=== PATIENT | female | born 1945 | race Caucasian/White ===

== ENCOUNTER 2017-06-21 09:33 | Inpatient (IN) | payer MEDICARE ==
[~2017-06-21] VITALS: Ht 152.4 cm; Wt 65.9 kg
[2017-06-21] VITALS (14 sets, daily range): BP systolic 109–173; BP diastolic 48–88
[~2017-06-21 09:33] MED LIST: ADULT LOW DOSE81 MG PO; ALDACTONE 25MG25 MG NG; AMLODIPINE BES10 MG PO; ATORVASTATIN CA80 MG PO; BENEPROTEIN PO; BUSPAR 10MG TAB10 MG PO; CALCIUM CARB500 MG PO; CARVEDILOL 25MG25 MG PO; CLOPIDOGREL75 M2 PO; FLUOXETINE HYDR20 MG PO; FSBS SC; GEMFIBROZIL600 M1 OR; GLIMEPIRIDE 2MG2 MG PO; HYDROCHLOROTHIA50 MG PO; LASIX 40MG. TAB40 MG PO; LISINOPRIL40 MG PO; MAG-OX 400MG T400 MG PO; METFORMIN HCL1000 MG PO; MULTI-VITAMINS1 TAB PO; NITROGLYCERIN0.4 MG SL; PLAVIX 75MG TAB75 MG PO; POTASSIUM CHLO20 ME2 PO; PROZAC 20MG CAP20 MG PO; RANITIDINE HCL300 M1 PO; TYLENOL ES500 MG PO; ZOFRAN4 MG PO
[2017-06-21 09:43] LABS: HEMOGLOBIN 11.2 g/dL (12.2-16.2); LYMPH # 1.3 K/mm3 (0.7-4.5); LYMPH % 10.2 % (10-50.0)
[2017-06-21 09:49] LABS: CORONAVIRUS 229E NOT DETECTED (NOT DETECTE); CORONAVIRUS HKU 1 NOT DETECTED (NOT DETECTE); CORONAVIRUS NL63 NOT DETECTED (NOT DETECTE); CORONAVIRUS OC43 NOT DETECTED (NOT DETECTE); RHINOVIRUS/ENTEROVIRUS NOT DETECTED (NOT DETECTE)
--- NOTE | 2017-06-21 09:49 | Emergency Room Report ---
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 N Clinical Suspician of Infection? N Mental Status: 1 - Regular (Normal Baseline) Sepsis Risk:Low Sepsis Risk Have you (or family members/close friends) recently traveled outside the [place]? N If Yes, where/when: Have you had exposure to infectious disease within the past month? TB? Other? Specify: Comment The patient arrives by ambulance complaining of chest pain. She says she has had a bad cold with congestion and then woke up this morning at 6 AM with precordial chest pain radiating to her LEFT jaw, associated with shortness of breath and diaphoresis, but no nausea. She says the pain went away but now has returned and is currently 6/10. She has a history of coronary artery disease with stent placement and bypass surgery. [employer] Supervisor is Dr. Solorzano. She was given aspirin in route to the hospital. Electrocardiogram performed in route was seen by me, shows some suspicious reciprocal changes in the lateral leads, but no STEMI. ALLERGIES Coded Allergies: No Known Allergies (06/21/17) Home Medications Active Scripts Buspirone Hcl (Buspar 10MG) 10 MG PO TID PRN ANXIETY #270 TAB Ref 1 Prov: 01/13/16 Reported Medications Fluoxetine Hcl (Prozac 20MG Capsule(Generic)) 10 MG PO DAILY Ranitidine Hcl (Ranitidine 300MG) 300 MG PO QHS #90 TAB CLOPIDOGREL BISULFATE (PLAVIX) 75 MG PO DAILY Furosemide (Lasix 40MG) 40 MG PO BID MAGNESIUM OXIDE (Magnesium Oxide) 400 MG PO BID Acetaminophen (Tylenol XS 500MG) 500 MG PO Q8HP PRN PAIN MULTIVITAMIN (Multi-Vitamins) 1 TAB PO DAILY ONDANSETRON HCL (Zofran 4MG Tab) 4 MG PO Q8HP PRN NAUSEA/VOMITING Calcium Carbonate ([id number]) 500 MG PO BID WHEY PROTEIN ISOLATE (Beneprotein) 1 Scoopful PO BID MISCELLANEOUS (Fingerstick Blood Sugar) 1 STI SC AC NITROGLYCERIN (Nitrostat) 0.4 MG SL [id number] PRN CHEST PAIN #25 Aspirin (Adult Low Dose Aspirin EC) 81 MG PO DAILY #1 METFORMIN HCL (Metformin 1000MG) 1,000 MG PO BID #180 Carvedilol (Carvedilol 25MG) 25 MG PO BID #180 History Medical History General CAD? Yes Angina: Yes AL: Yes Hypertension? Yes Hyperlipidemia? Yes CHF? Yes DVT? No PE? No COPD? No Asthma? No Anemia? Yes GERD? No Gastric ulcers? No GI Bleed? No Hernia? No Thyroid Problems? No Hypothyroidism? No CVA? Yes Seizures? No Diabetes? Yes Insulin Dependent: No Insulin Pump: No Home FSBS? Yes Renal Insuffiency? No End Stage Renal Disease? No UTI? Yes Stones? No BPH? No GB Disease: No Nephritic Syndrome? No Asplenia? No Hepatitis? No Sickle Cell Disease? No Arthritis? No Migraines? No Cataracts? Yes Glaucoma? No MRSA? No HIV? No TB? No Anxiety? Yes Depression? Yes Cancer? Yes Site: CERVICAL More? Yes Additional hx: STENTS, BYPASS Immunization Hx Ped.Immunizations UTD Yes DT/Tetanus 5-10 Years Ago Pneumonia Received In Past Surgical Hx Previous Surgery?Y KIDNEY STENTS HEART STENTS TRIPLE BI PASS RIGHT ANKLE FX & SX CERVICAL CA SX Family History Family Hx Diabetes No CAD Yes Hypertension Yes Hyperlipidemia Yes Cancer No TB No Social History Smoking Hx Smoker: Former Smoker Tobacco: No Type Cigarettes Packs/day N/A Alcohol Alcohol: No Review of Systems All Other Systems Reviewed and Negative Constitutional diaphoresis ENT nose discharge. Respiratory shortness of breath Cardiovascular chest pain Gastrointestinal denies nausea, denies vomiting Physical Exam Vital Signs Vital Signs Date Time Temp Pulse Resp B/P Pulse O2 O2 Flow FiO2 Ox Delivery Rate 06/21 1126 97.8 74 18 96/45 97 06/21 1045 20 06/21 1028 20 06/21 1005 95 06/21 0950 97.8 85 18 138/87 95 06/21 0936 97.8 73 18 138/87 98 General Appearance mild distress Eye Exam - bilateral eye normal exam, bilateral eye PERRL, bilateral eye EOMI Ear, Nose, Throat hearing grossly normal, normal ENT inspection Neck normal inspection, non-tender, supple, full range of motion Respiratory Status Yes: trachea midline, chest symmetrical, non tender chest. No: respiratory distress. Lung Sounds bilateral: normal breath sounds, lungs clear. Cardiovascular normal exam, regular rate/rhythm, no peripheral edema, no gallop, no JVD, no murmur, no rub, normal peripheral pulses Peripheral Pulses Pulses normal Yes Gastrointestinal normal bowel sounds, normal exam, non tender, soft, no organomegaly Extremities normal inspection Neurologic alert, oriented x 3 Mental status normal mood/affect Skin intact, warm/dry, pallor Medical Decision Making LABS/Meds/Orders Pt receiving controlled substance in ED? No Results/Orders Laboratory Tests 06/21/17 0940: Lactic Acid 1.5, Chlamy pneum (TEM-PCR) NOT DETECTED, Adenovirus (PCR) NOT DETECTED, B. pertussis DNA (PCR) NOT DETECTED, Coronavirus OC43 (PCR) NOT DETECTED, Coronavirus HKU1 (PCR) NOT DETECTED, Coronavirus 229E (PCR) NOT DETECTED, Coronavirus NL63 (PCR) NOT DETECTED, Human Metapneumovir PCR NOT DETECTED, Influenza A (H1) PCR NOT DETECTED, Influ A (H1N1/09) PCR NOT DETECTED, Influenza A (H3) PCR NOT DETECTED, Influenza Type A (PCR) NOT DETECTED, Influenza Type B (PCR) NOT DETECTED, M. pneumoniae (PCR) NOT DETECTED, Parainfluenza 1 (PCR) NOT DETECTED, Parainfluenza 2 (PCR) NOT DETECTED, Parainfluenza 3 (PCR) NOT DETECTED, Parainfluenza 4 (PCR) NOT DETECTED, RSV (PCR ) NOT DETECTED, Entero/Rhino (PCR) NOT DETECTED 06/21/17 0930: Sodium 139, Potassium 4.0, Chloride 104, Carbon Dioxide 23, BUN 15, Creatinine 1.4 H, Estimated Creat Clear 38 L, Estimated GFR (MDRD) 37 L, Glucose 189 H, Calcium 8.4 L, Total Bilirubin 0.4, AST 20, ALT 14, Alkaline Phosphatase 93, Creatine Kinase 99, CK-MB (CK-2) Rel Index 2.1, CK and CKMB Interp 2.1, Troponin I 0.26 H, Total Protein 7.5, Albumin 2.6 L, Globulin 4.9 H, Albumin/Globulin Ratio 0.5 L, WBC 13.2 H, RBC 3.83 L, Hgb 11.2 L, Hct 33.2 L, MCV 86.7, RDW 12.0, Plt Count 429 H, MPV 8.3, Gran % 80.3 H, Gran # 10.6 H, Lymphocytes % 10.2, Monocytes % 4.7, Eosinophils % 4.5, Basophils % 0.3, Lymphocytes # 1.3, Monocytes # 0.6, Eosinophils # 0.6 H, Basophils # 0.0, PUBS MCHC 33.7, MCH 29.2 Current Medication Orders Sig/Penelope Start time Last Medication Dose Route Stop Time Status Admin Morphine Sulfate 0 .STK-MED ONE 06/21 1141 DC .ROUTE Protamine Sulfate 0 .STK-MED ONE 06/21 1131 DC IV Iopamidol 200 ML ONCE ONE 06/21 1130 UNV 06/21 IV 06/21 1131 1119 Diphenhydramine HCl 50 MG ONCE ONE 06/21 1015 DC IV 06/21 1016 Fentanyl Citrate 25 MCG Q3MINP PRN 06/21 1015 DCD 06/21 IV 06/21 2300 1046 Fentanyl Citrate 50 MCG Q3MINP PRN 06/21 1015 DCD IV 06/21 2300 Flumazenil 0.2 MG PRN PRN 06/21 1015 DCD IV 06/21 2300 Heparin Sodium (Beef 5,000 UNITS PRN PRN 06/21 1015 DCD 06/21 Lung) IV 06/22 1011 1052 Heparin Sodium/ 3,000 UNITS PRN PRN 06/21 1015 DCD 06/21 Sodium Chloride IV 06/22 1011 1016 Lidocaine HCl 20 ML ONCE ONE 06/21 1015 DCD 06/21 IJ 06/21 1016 1020 Midazolam HCl 1 MG Q3MINP PRN 06/21 1015 DCD IV 06/21 2300 Midazolam HCl 1 MG Q3MINP PRN 06/21 1015 DCD 06/21 IV 06/21 2300 1045 Naloxone HCl 0.4 MG [id number] PRN 06/21 1015 DCD IV 06/21 2300 Nitroglycerin 800 MCG PRN PRN 06/21 1015 DCD 06/21 IV 06/22 1011 1043 Sodium Chloride 10 ML PRN PRN 06/21 1015 DCD IV Sodium Chloride 1,000 ML .Q25H 06/21 1015 DCD 06/21 IV 1021 Ticagrelor 180 MG ONCE ONE 06/21 1015 DCD 06/21 PO 06/21 1016 1018 Verapamil HCl 5 MG PRN PRN 06/21 1015 DCD IV 06/22 1011 Heparin Sodium/ 1,500 ML .STK-MED ONE 06/21 1008 DC Sodium Chloride IV Nitroglycerin 0 .STK-MED ONE 06/21 1008 DC IV Diphenhydramine HCl 0 .STK-MED ONE 06/21 1007 DC .ROUTE Heparin Sodium (Beef 0 .STK-MED ONE 06/21 1007 DC Lung) .ROUTE Lidocaine HCl 0 .STK-MED ONE 06/21 1007 DC .ROUTE Verapamil HCl 0 .STK-MED ONE 06/21 1007 DC .ROUTE Ticagrelor 0 .STK-MED ONE 06/21 1003 DC PO Sodium Chloride 1,000 ML .STK-MED ONE 06/21 0958 DC IV Sodium Chloride 10 ML PRN PRN 06/21 0945 DCD IV 06/22 0934 Orders Procedure Date/time Status ANGIOPLASTY W/STENT PLCMNT 06/21 1116 Active ANGIOPLASTY W/STENT PLCMNT 06/21 1037 Active CARDIAC REHAB EVALUATION 06/21 1033 Active CULTURE, BLOOD 06/21 0946 Active UPPER RESPIRATORY PANEL, PCR 06/21 0946 Complete LACTIC ACID 06/21 0946 Complete ELECTROCARDIOGRAM REQUEST 06/21 0935 Active IV SALINE LOCK 06/21 0935 Active OXYGEN PER NURSE 06/21 0935 Active CBC WITH AUTO DIFF 06/21 0935 Complete CARDIAC ENZYMES 06/21 0935 Complete CHEM 12 PROFILE 06/21 0935 Complete 12 LEAD EKG-[facility] (INITIAL) 06/21 UNK Active MOD IV SED.-1ST 15M- >=5YR OLD 06/21 UNK Active VITAL SIGNS 06/21 UNK Active PREPARE CONSENT 06/21 UNK Active OXYGEN PER NURSE 06/21 UNK Active GEN NSG/PT REQ (NOT FOR MEDS!) 06/21 UNK Active IV, Insertion/Discontinue 06/21 UNK Active CM/EKG CM/EKG Comments EKG interpreted by Daniel Brooke MD: Rhythm: sinus Rate: 73 [place]: normal Ectopy: none Conduction: normal ST Segment Changes: ST elevation consistent with acute myocardial infarction in the inferior leads, depression consistent with reciprocal changes in the lateral leads. T Wave Changes: none Q Waves: none No evidence of acute ischemia or injury Progress - Electrocardiogram performed in the ED shows STEMI, inferior, with reciprocal changes. Code STEMI called. Cardiology service responded immediately to the emergency room and she was taken to the laboratory sample carrier emergently. Departure Departure Disposition Still a Patient Clinical Impression Primary Impression: Acute ST elevation myocardial infarction (STEMI) Qualifiers: Involved coronary artery: unspecified coronary artery Qualified Code: I21.3 - ST elevation (STEMI) myocardial infarction of unspecified site Condition STABLE Referrals Vishnu Zambrano MD (Family) ED Critical Care Critical Care Yes Time spent < 30 min Vital system(s) involved: Circulatory Failure I was present at bedside for Coordinating pt's care, Interpreting EKGs/Strips , During my initial exam, Reviewing old records, Discussing pt condition at 1147
--- OUTSIDE RECORDS SUMMARY | 2017-06-21 09:52 | External Medical Summary Rpt | CCD ---
Author Author , JULES VICENTE Address Unknown Phone [email or web address] Purpose Continuity of Care Document - 10-24-2016 through 2016 Problems Code Diagnosis DOS Provider Status E11.9 TYPE 2 10-24-2016 DIABETES MELLITUS WITHOUT COMPLICATIO NS F41.9 ANXIETY 10-24-2016 DISORDER, UNSPECIFIED I10 ESSENTIAL 10-24-2016 (PRIMARY) HYPERTENSIO N I25.2 OLD 10-24-2016 MYOCARDIAL INFARCTION K80.50 CALCULUS OF 10-24-2016 BILE DUCT WITHOUT CHOLANGITIS OR CHOLECYSTIT IS WITHOUT OBSTRUCTION N39.0 URINARY 10-24-2016 TRACT INFECTION, SITE NOT SPECIFIED R10.30 LOWER 10-24-2016 ABDOMINAL PAIN, UNSPECIFIED 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 complet ed 017 fl 4 ed blood 09:30 platele t mean volume sonny Blood = 429 142-424 complet platele 017 K/mm3 ed t count 09:30 Red = 3.83 4.2-5.4 complet blood 017 M/mm3 ed cell 09:30 count Automat = 12.0 11.5-17 complet ed 017 % .5 ed erythro 09:30 cyte distrib ution width Blood = 13.2 4.8-10. complet leukocy 017 K/MM3 8 ed karla 09:30 count (number /volume ) Automat = 0.0 0-0.2 complet ed 017 K/MM3 ed blood 09:30 basophi l count (count/ vo Baso % = 0.3 % 0.1-2.0 complet 017 ed 09:30 Automat = 0.6 0.0-0.4 complet ed 017 K/mm3 ed blood 09:30 eosinop hil count Automat = 4.5 % 0.1-12. complet ed 017 0 ed blood 09:30 eosinop hils/10 0 leukocy t Blood = 10.6 1.8-7.8 complet granulo 017 K/mm3 ed cytes 09:30 automat ed count (numb Granulo = 80.3 37.0-80 complet cyte 017 % .0 ed percent 09:30 age Blood = 33.2 37.0-47 complet hematoc 017 % .0 ed rit 09:30 (volume fractio n) Blood = 11.2 12.2-16 complet hemoglo 017 g/dL .2 ed bin 09:30 measure ment (mass/v olum Absolut = 1.3 0.7-4.5 complet e 017 K/mm3 ed lymphoc 09:30 yte count Lymphoc = 10.2 10-50.0 complet yte 017 % ed count, 09:30 blood, automat ed Mean = 29.2 27-31.2 complet corpusc 017 pg ed ular 09:30 hemoglo bin (MCH) determ Automat = 33.7 31.8-35 complet ed 017 g/dl .4 ed erythro 09:30 cyte mean corpusc ular h Automat = 86.7 82.2-97 complet ed 017 fl .8 ed erythro 09:30 cyte mean corpusc ular v Absolut = 0.6 0.1-1.0 complet e 017 K/mm3 ed monocyt 09:30 e count [place] % = 4.7 % 1.7-9.3 complet 017 ed 09:30
--- OUTSIDE RECORDS SUMMARY | 2017-06-21 09:52 | External Medical Summary Rpt ---
Author Author JULES Park, JULES Park Organization [employer] Address Unknown Phone Unavailable
--- OUTSIDE RECORDS SUMMARY | 2017-06-21 09:52 | External Medical Summary Rpt | CCD ---
Demographics Preferred Language Irish Marital Status Unknown Yazidi Affiliation Unknown Race Unknown Ethnic Group Unknown Author Author , JULES VICENTE Address Unknown Phone Immunization No patient found.
--- OUTSIDE RECORDS SUMMARY | 2017-06-21 09:52 | External Medical Summary Rpt | CCD ---
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
--- OUTSIDE RECORDS SUMMARY | 2017-06-21 09:52 | External Medical Summary Rpt | CCD ---
Author Author [employer] Organization [employer] Address Unknown Phone Unavailable Purpose Continuity of Care Document - through 2016
--- OUTSIDE RECORDS SUMMARY | 2017-06-21 09:52 | External Medical Summary Rpt | CCD ---
Demographics Preferred Language Romansh Marital Status Unknown Pentecostalism Affiliation Unknown Race Unknown Ethnic Group Unknown Author Author , JULES VICENTE Address Unknown Phone Immunization No patient found.
--- NOTE | 2017-06-21 10:11 | CONSULT NOTE ---
Standard Demographics Patient Demo Date of Consultation: 06/21/17 Referring Provider: Vishnu Zambrano MD Reason for Consultation: STEMI PRIMARY DIAGNOSIS: chest pain Problem list Problem list: 1. CAD A. UT/CABG, 2006, [facility], Dr. Chon Landin NSTEMI, 09/2015, SONNY to SVG to Cx, SONNY to LAD via WRIGHT. 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 ASA and Brilinta started. BMS to right renal artery. Chronically occluded left renal artery. C. CM with EF about 30% by echo, 01/2016. D. LHC, 01/19/2016, revealing multivessel disease with severe CM with EF 15-20%. E. Multivessel stenting, 01/2016, with placement of LifeVest. F. STEMI, 06/21/2017, inferiorly 2. Diabetes mellitus 3. Tobacco use discontinued 2005 one pack per day since age 17 4. Hyperlipidemia, intolerant of statins due to myalgias and muscular disorder 5. Muscular disorder felt related to use of statin 6. 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 Hypertension 9. Recurrent anemia with recent blood transfusion, 2015, per patient History of present illness: History of present illness: 71 yo WF with known ischemic CM, previous CABG and diabetes was seen in ER for recurrent CP for several days. Symptoms transiently improved with NTG SL but recurred with EKG changes consistent with inferior STEMI with lateral reciprocal changes. Pt seen urgently in ER and taken to labor delivery specialist for cardiac cath. Initial troponin 0.26. Past Medical History: General: Hypertension Yes CVA Yes Seizures No TB No COPD No Asthma No Diabetes Yes Insulin Dependent No Insulin Pump No Angina Yes [place] Yes Hyperlipidemia Yes Cancer Yes Ulcers No MRSA No GB Disease No Additional hx STENTS, BYPASS Past Surgical HX: Previous Surgery?Y KIDNEY STENTS HEART STENTS TRIPLE BI PASS RIGHT ANKLE FX & SX CERVICAL CA SX Allergies Coded Allergies: No Known Allergies (06/21/17) Home medications: Active Scripts Buspirone Hcl (Buspar 10MG) 10 MG PO TID PRN ANXIETY #270 TAB Ref 1 Prov: 01/13/16 Reported Medications Fluoxetine Hcl (Prozac 20MG Capsule(Generic)) 10 MG PO DAILY Ranitidine Hcl (Ranitidine 300MG) 300 MG PO QHS #90 TAB CLOPIDOGREL BISULFATE (PLAVIX) 75 MG PO DAILY Furosemide (Lasix 40MG) 40 MG PO BID MAGNESIUM OXIDE (Magnesium Oxide) 400 MG PO BID Acetaminophen (Tylenol XS 500MG) 500 MG PO Q8HP PRN PAIN MULTIVITAMIN (Multi-Vitamins) 1 TAB PO DAILY ONDANSETRON HCL (Zofran 4MG Tab) 4 MG PO Q8HP PRN NAUSEA/VOMITING Calcium Carbonate (Bquk-[id number]) 500 MG PO BID WHEY PROTEIN ISOLATE (Beneprotein) 1 Scoopful PO BID MISCELLANEOUS (Fingerstick Blood Sugar) 1 STI SC AC NITROGLYCERIN (Nitrostat) 0.4 MG SL [id number] PRN CHEST PAIN #25 Aspirin (Adult Low Dose Aspirin EC) 81 MG PO DAILY #1 METFORMIN HCL (Metformin 1000MG) 1,000 MG PO BID #180 Carvedilol (Carvedilol 25MG) 25 MG PO BID #180 Current Medications: Current Medications Ticagrelor 0 .STK-MED ONE PO (DC) Sodium Chloride 1,000 ML .STK-MED ONE IV (DC) Sodium Chloride 10 ML PRN PRN IV Immunization HX Ped.Immunizations UTD Yes DT/Tetanus 5-10 Years Pneumonia RECEIVED IN PAST Family history Family HX Family Hx Insignificant No Diabetes No CAD Yes Hypertension Yes Hyperlipidemia Yes Cancer No TB No Social Hx: Smoking HX Tobacco No Type Cigarettes Packs/day N/A Alcohol Alcohol: No Hx of Drug Use Drug Use? No Review of systems: Constitutional malaise. Respiratory shortness of breath. Cardiovascular chest pain Gastrointestinal/Abdominal No no symptoms reported Genitourinary No: no symptoms reported. Musculoskeletal back pain. Neurological No: no symptoms reported. Exam: Admission Vital Signs: 1ST Vital Signs Result Date Time Pulse Ox 98 06/21 936 B/P 138/87 06/21 936 Temp 97.8 06/21 936 Pulse 73 06/21 936 Resp 18 06/21 936 Last Vital Signs: Vital Signs Result Date Time Pulse Ox 95 06/21 1005 B/P 138/87 06/21 936 Temp 97.8 06/21 936 Pulse 73 06/21 936 Resp 18 06/21 936 Exam General appearance: alert, awake Neck: no carotid bruit, no JVD Cardiovascular: regular rate & rhythm Respiratory: clear to auscultation ABD: soft, no tenderness Extremities: moves all, no peripheral edema Neuro: alert, intact, oriented Laboratory data: Laboratory Tests 06/21/17 0930: Sodium 139, Potassium 4.0, Chloride 104, Carbon Dioxide 23, BUN 15, Creatinine 1.4 H, Estimated Creat Clear 38 L, Estimated GFR (MDRD) 37 L, Glucose 189 H, Calcium 8.4 L, Total Bilirubin 0.4, AST 20, ALT 14, Alkaline Phosphatase 93, Creatine Kinase 99, CK-MB (CK-2) Rel Index 2.1, CK and CKMB Interp 2.1, Troponin I 0.26 H, Total Protein 7.5, Albumin 2.6 L, Globulin 4.9 H, Albumin/Globulin Ratio 0.5 L, WBC 13.2 H, RBC 3.83 L, Hgb 11.2 L, Hct 33.2 L, MCV 86.7, RDW 12.0, Plt Count 429 H, MPV 8.3, Gran % 80.3 H, Gran # 10.6 H, Lymphocytes % 10.2, Monocytes % 4.7, Eosinophils % 4.5, Basophils % 0.3, Lymphocytes # 1.3, Monocytes # 0.6, Eosinophils # 0.6 H, Basophils # 0.0, PUBS MCHC 33.7, MCH 29.2 Microbiology Date/Time Procedure - Status Source Growth 06/21 940 Anaerobic Blood Culture - RECD BLOOD 06/21 940 Aerobic Blood Culture - RECD BLOOD 06/21 940 Anaerobic Blood Culture - RECD BLOOD 06/21 940 Aerobic Blood Culture - RECD BLOOD Plan Assessment: 1. STEMI 2. CAD with previous CABG 3. CKD stage 3 with Cr 1.7 and GFR 37 4. HTN 5. Hyperlipidemia 6. DM with cataract right eye/blind 7. Previous CVA CT STEMI SCORE CT STEMI SCORE Response Value Age of patient 65-74 years 2 Hx of anginal chest pain Present 1 Hx of hypertension Present 1 Hx of diabetes Present 1 Systolic Blood Pressure 100 mg Hg or more 0 Heart Rate Less than 100 beats/min 0 [place] Class I-No heart failure 0 Patient weight Less than 67 kg 0 Anterior [place] No 0 Left Bundle Branch Block Absent 0 Treatment delay after attack Less than 4 hrs 0 Total 5 Plan: 1. Taken urgently to cardiac labor delivery specialist at 1011
--- NOTE | 2017-06-21 10:11 | CONSULT NOTE ---
Standard Demographics Patient Demo Date of Consultation: 06/21/17 Referring Provider: Vishnu Zambrano MD Reason for Consultation: STEMI PRIMARY DIAGNOSIS: chest pain Problem list Problem list: 1. CAD A. WI/CABG, 2006, [facility], Dr. Chon Landin NSTEMI, 09/2015, SONNY to SVG to Cx, SONNY to LAD via WRIGHT. 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 ASA and Brilinta started. BMS to right renal artery. Chronically occluded left renal artery. C. CM with EF about 30% by echo, 01/2016. D. LHC, 01/19/2016, revealing multivessel disease with severe CM with EF 15-20%. E. Multivessel stenting, 01/2016, with placement of LifeVest. F. STEMI, 06/21/2017, inferiorly 2. Diabetes mellitus 3. Tobacco use discontinued 2005 one pack per day since age 17 4. Hyperlipidemia, intolerant of statins due to myalgias and muscular disorder 5. Muscular disorder felt related to use of statin 6. 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 Hypertension 9. Recurrent anemia with recent blood transfusion, 2015, per patient History of present illness: History of present illness: 71 yo WF with known ischemic CM, previous CABG and diabetes was seen in ER for recurrent CP for several days. Symptoms transiently improved with NTG SL but recurred with EKG changes consistent with inferior STEMI with lateral reciprocal changes. Pt seen urgently in ER and taken to medical laboratory assistant for cardiac cath. Initial troponin 0.26. Past Medical History: General: Hypertension Yes CVA Yes Seizures No TB No COPD No Asthma No Diabetes Yes Insulin Dependent No Insulin Pump No Angina Yes WI Yes Hyperlipidemia Yes Cancer Yes Ulcers No MRSA No GB Disease No Additional hx STENTS, BYPASS Past Surgical HX: Previous Surgery?Y KIDNEY STENTS HEART STENTS TRIPLE BI PASS RIGHT ANKLE FX & SX CERVICAL CA SX Allergies Coded Allergies: No Known Allergies (06/21/17) Home medications: Active Scripts Buspirone Hcl (Buspar 10MG) 10 MG PO TID PRN ANXIETY #270 TAB Ref 1 Prov: 01/13/16 Reported Medications Fluoxetine Hcl (Prozac 20MG Capsule(Generic)) 10 MG PO DAILY Ranitidine Hcl (Ranitidine 300MG) 300 MG PO QHS #90 TAB CLOPIDOGREL BISULFATE (PLAVIX) 75 MG PO DAILY Furosemide (Lasix 40MG) 40 MG PO BID MAGNESIUM OXIDE (Magnesium Oxide) 400 MG PO BID Acetaminophen (Tylenol XS 500MG) 500 MG PO Q8HP PRN PAIN MULTIVITAMIN (Multi-Vitamins) 1 TAB PO DAILY ONDANSETRON HCL (Zofran 4MG Tab) 4 MG PO Q8HP PRN NAUSEA/VOMITING Calcium Carbonate ([id number]) 500 MG PO BID WHEY PROTEIN ISOLATE (Beneprotein) 1 Scoopful PO BID MISCELLANEOUS (Fingerstick Blood Sugar) 1 STI SC AC NITROGLYCERIN (Nitrostat) 0.4 MG SL [id number] PRN CHEST PAIN #25 Aspirin (Adult Low Dose Aspirin EC) 81 MG PO DAILY #1 METFORMIN HCL (Metformin 1000MG) 1,000 MG PO BID #180 Carvedilol (Carvedilol 25MG) 25 MG PO BID #180 Current Medications: Current Medications Ticagrelor 0 .STK-MED ONE PO (DC) Sodium Chloride 1,000 ML .STK-MED ONE IV (DC) Sodium Chloride 10 ML PRN PRN IV Immunization HX Ped.Immunizations UTD Yes DT/Tetanus 5-10 Years Pneumonia RECEIVED IN PAST Family history Family HX Family Hx Insignificant No Diabetes No CAD Yes Hypertension Yes Hyperlipidemia Yes Cancer No TB No Social Hx: Smoking HX Tobacco No Type Cigarettes Packs/day N/A Alcohol Alcohol: No Hx of Drug Use Drug Use? No Review of systems: Constitutional malaise. Respiratory shortness of breath. Cardiovascular chest pain Gastrointestinal/Abdominal No no symptoms reported Genitourinary No: no symptoms reported. Musculoskeletal back pain. Neurological No: no symptoms reported. Exam: Admission Vital Signs: 1ST Vital Signs Result Date Time Pulse Ox 98 06/21 936 B/P 138/87 06/21 936 Temp 97.8 06/21 936 Pulse 73 06/21 936 Resp 18 06/21 936 Last Vital Signs: Vital Signs Result Date Time Pulse Ox 95 06/21 1005 B/P 138/87 06/21 936 Temp 97.8 06/21 936 Pulse 73 06/21 936 Resp 18 06/21 936 Exam General appearance: alert, awake Neck: no carotid bruit, no JVD Cardiovascular: regular rate & rhythm Respiratory: clear to auscultation ABD: soft, no tenderness Extremities: moves all, no peripheral edema Neuro: alert, intact, oriented Laboratory data: Laboratory Tests 06/21/17 0930: Sodium 139, Potassium 4.0, Chloride 104, Carbon Dioxide 23, BUN 15, Creatinine 1.4 H, Estimated Creat Clear 38 L, Estimated GFR (MDRD) 37 L, Glucose 189 H, Calcium 8.4 L, Total Bilirubin 0.4, AST 20, ALT 14, Alkaline Phosphatase 93, Creatine Kinase 99, CK-MB (CK-2) Rel Index 2.1, CK and CKMB Interp 2.1, Troponin I 0.26 H, Total Protein 7.5, Albumin 2.6 L, Globulin 4.9 H, Albumin/Globulin Ratio 0.5 L, WBC 13.2 H, RBC 3.83 L, Hgb 11.2 L, Hct 33.2 L, MCV 86.7, RDW 12.0, Plt Count 429 H, MPV 8.3, Gran % 80.3 H, Gran # 10.6 H, Lymphocytes % 10.2, Monocytes % 4.7, Eosinophils % 4.5, Basophils % 0.3, Lymphocytes # 1.3, Monocytes # 0.6, Eosinophils # 0.6 H, Basophils # 0.0, PUBS MCHC 33.7, MCH 29.2 Microbiology Date/Time Procedure - Status Source Growth 06/21 940 Anaerobic Blood Culture - RECD BLOOD 06/21 940 Aerobic Blood Culture - RECD BLOOD 06/21 940 Anaerobic Blood Culture - RECD BLOOD 06/21 940 Aerobic Blood Culture - RECD BLOOD Plan Assessment: 1. STEMI 2. CAD with previous CABG 3. CKD stage 3 with Cr 1.7 and GFR 37 4. HTN 5. Hyperlipidemia 6. DM with cataract right eye/blind 7. Previous CVA CT STEMI SCORE CT STEMI SCORE Response Value Age of patient 65-74 years 2 Hx of anginal chest pain Present 1 Hx of hypertension Present 1 Hx of diabetes Present 1 Systolic Blood Pressure 100 mg Hg or more 0 Heart Rate Less than 100 beats/min 0 Killip Class I-No heart failure 0 Patient weight Less than 67 kg 0 Anterior WI No 0 Left Bundle Branch Block Absent 0 Treatment delay after attack Less than 4 hrs 0 Total 5 Plan: 1. Taken urgently to cardiac medical laboratory assistant at 1011
--- NOTE | 2017-06-21 11:13 | RADIOLOGY REPORT PS360 ---
CARDIAC CATHETERIZATION DATE OF CATHETERIZATION:06/21/2017 10:16 AM PROCEDURES: 1. Left heart catheterization 2. Left ventriculogram 3. Selective coronary angiogram 4. Selective engagement left internal mammary artery 5. Selective engagement of the saphenous vein graft to the circumflex artery 6. Selective engagement of the saphenous vein graft to the right coronary artery 7. Drug-eluting stent deployment to the saphenous vein graft to the circumflex artery 8. Drug-eluting stent deployment to the left internal mammary artery 9. Angioplasty to the LAD via the left internal mammary artery INDICATION FOR TEST: 1. Acute inferior ST elevation myocardial infarct 2. Coronary artery disease 3. History of bypass surgery Informed consent was obtained prior to the procedure. COMPLICATIONS: None ESTIMATED BLOOD LOSS: Less than 10 ml. TECHNIQUE: One percent lidocaine was used to anesthetize the right groin. The right femoral artery was accessed via the Seldinger technique. A 6 [place] sheath was placed in the right femoral artery followed by 7000 units of intra-arterial heparin. The JR4 guide catheter was used to perform angiography of the 2 veins. An LCB guide catheter was used intubate the saphenous vein graft and a choice PT wire was placed distally into the obtuse marginal artery. An export catheter was used to try to aspirate clot from the entire vein graft. CT-3 flow was not restored with export usage. Four 3 mm x 38 mm resolute Heladio stents were placed proximally mid and distally followed by multiple aliquots of 800 mcg of intracoronary nitroglycerin. CT-3 flow was restored. Following this a JL 4 catheter was used to perform left sided selective coronary angiography. A WRIGHT guide catheter was used to perform left internal mammary artery. Following this a 6 [place] WRIGHT guide catheter was placed in the left internal mammary artery and a choice PT floppy wire was placed distally into the LAD. A 2.25 x 38 mm resolute Heladio stent was placed in the saphenous vein graft and 90% in-stent restenotic area and deployed at 20 wolfgang. The balloon was advanced into the LAD and a noncontiguous manner and the balloon was taken to 12 wolfgang for 1 minute. 1000 mcg of intracoronary nitroglycerin was administered into the WRIGHT. CT-3 flow was present with excellent interval improvement in angiographic results. At the end of the procedure is WRIGHT catheter was used to perform left heart catheterization left ventriculogram. The closing ACT was 257 therefore an additional 2000 units of heparin was administered intravenously. Patient was transferred to the postop holding area in stable condition. Brilinta 180 mg orally was administered in the emergency department prior to patient being transferred up to cardiac catheter lab ANGIOGRAPHIC RESULTS: 1. The left main artery normal 2. The left anterior descending artery has proximal 20% stenoses and gives rise to a diagonal artery and a septal correctional supervisor lieutenant. The LAD is then occluded. The diagonal artery has 90% stenosis at a 1.5 mm segment. The vessel has diffuse vasculopathy. The first septal correctional supervisor lieutenant has an ostial proximal 80% stenosis 3. The circumflex artery is rise to a ramus intermedius which has 50% mid vessel stenoses. The circumflex artery is a 99% stenosis and then gives off 3 small obtuse marginal arteries and is occluded 4. The right coronary artery is ostially occluded 5. The DURAND ventriculogram reveals left ventricular dilatation estimated ejection fraction 35-40% 6. The left ventricular end-diastolic pressure 30 mmHg 7. The saphenous vein graft to the circumflex artery is ostially occluded at the beginning of the case and widely patent from the ostium all the way to the anastomosis site following the placement of 4 drug-eluting stents. The obtuse marginal artery supplied by the saphenous vein graft is now widely patent and does backfill to small obtuse marginal arteries 8. The saphenous vein graft to the right coronary artery is widely patent in the proximal segment and has a distal 60-70% concentric stenosis and then supplies a large posterior descending artery. Posterior descending artery has a proximal 80% concentric stenosis and then backfills a small to medium posterior lateral ventricular branch 9. The left internal mammary artery is widely patent and has a 99% in-stent restenotic lesion which appears to be inside the stent. Distal to the stent the [place] LAD has a 99% stenosis after the revascularization the WRIGHT graft and the [place] LAD were widely patent IMPRESSION: 1. Acute ST elevation myocardial infarction involving the saphenous vein graft to the circumflex artery 2. Successful thrombectomy and reconstruction of the entire vein graft going to the circumflex artery 100% occlusion reduced to 0% with 4 drug-eluting stents in the vein graft 3. Critical disease in the left internal mammary artery and [place] LAD 4. Successful stenting of the left internal mammary artery critical disease reduced to 0% with 1 drug-eluting stent 5. Successful angioplasty of the [place] left internal mammary artery 99% stenosis reduced to 0% with plain old balloon angioplast(POBA) PLAN: 1. Brilinta and aspirin 2. LDL less than 55 3. Risk factor modification 4. Cardiac rehabilitation 5. Avoidance of tobacco products 6. An echocardiogram will be obtained to better evaluate patient's ejection fraction and if her ejection fraction is 35% or less I would recommend lifevest
--- NOTE | 2017-06-21 11:13 | RADIOLOGY REPORT PS360 ---
CARDIAC CATHETERIZATION DATE OF CATHETERIZATION:06/21/2017 10:16 AM PROCEDURES: 1. Left heart catheterization 2. Left ventriculogram 3. Selective coronary angiogram 4. Selective engagement left internal mammary artery 5. Selective engagement of the saphenous vein graft to the circumflex artery 6. Selective engagement of the saphenous vein graft to the right coronary artery 7. Drug-eluting stent deployment to the saphenous vein graft to the circumflex artery 8. Drug-eluting stent deployment to the left internal mammary artery 9. Angioplasty to the LAD via the left internal mammary artery INDICATION FOR TEST: 1. Acute inferior ST elevation myocardial infarct 2. Coronary artery disease 3. History of bypass surgery Informed consent was obtained prior to the procedure. COMPLICATIONS: None ESTIMATED BLOOD LOSS: Less than 10 ml. TECHNIQUE: One percent lidocaine was used to anesthetize the right groin. The right femoral artery was accessed via the Seldinger technique. A 6 Citizen [place] sheath was placed in the right femoral artery followed by 7000 units of intra-arterial heparin. The JR4 guide catheter was used to perform angiography of the 2 veins. An LCB guide catheter was used intubate the saphenous vein graft and a choice PT wire was placed distally into the obtuse marginal artery. An export catheter was used to try to aspirate clot from the entire vein graft. CT-3 flow was not restored with export usage. Four 3 mm x 38 mm resolute Heladio stents were placed proximally mid and distally followed by multiple aliquots of 800 mcg of intracoronary nitroglycerin. CT-3 flow was restored. Following this a JL 4 catheter was used to perform left sided selective coronary angiography. A WRIGHT guide catheter was used to perform left internal mammary artery. Following this a 6 Citizen [place] WRIGHT guide catheter was placed in the left internal mammary artery and a choice PT floppy wire was placed distally into the LAD. A 2.25 x 38 mm resolute Heladio stent was placed in the saphenous vein graft and 90% in-stent restenotic area and deployed at 20 wolfgang. The balloon was advanced into the LAD and a noncontiguous manner and the balloon was taken to 12 wolfgang for 1 minute. 1000 mcg of intracoronary nitroglycerin was administered into the WRIGHT. CT-3 flow was present with excellent interval improvement in angiographic results. At the end of the procedure is WRIGHT catheter was used to perform left heart catheterization left ventriculogram. The closing ACT was 257 therefore an additional 2000 units of heparin was administered intravenously. Patient was transferred to the postop holding area in stable condition. Brilinta 180 mg orally was administered in the emergency department prior to patient being transferred up to cardiac catheter lab ANGIOGRAPHIC RESULTS: 1. The left main artery normal 2. The left anterior descending artery has proximal 20% stenoses and gives rise to a diagonal artery and a septal hairmasters manager. The LAD is then occluded. The diagonal artery has 90% stenosis at a 1.5 mm segment. The vessel has diffuse vasculopathy. The first septal hairmasters manager has an ostial proximal 80% stenosis 3. The circumflex artery is rise to a ramus intermedius which has 50% mid vessel stenoses. The circumflex artery is a 99% stenosis and then gives off 3 small obtuse marginal arteries and is occluded 4. The right coronary artery is ostially occluded 5. The DURAND ventriculogram reveals left ventricular dilatation estimated ejection fraction 35-40% 6. The left ventricular end-diastolic pressure 30 mmHg 7. The saphenous vein graft to the circumflex artery is ostially occluded at the beginning of the case and widely patent from the ostium all the way to the anastomosis site following the placement of 4 drug-eluting stents. The obtuse marginal artery supplied by the saphenous vein graft is now widely patent and does backfill to small obtuse marginal arteries 8. The saphenous vein graft to the right coronary artery is widely patent in the proximal segment and has a distal 60-70% concentric stenosis and then supplies a large posterior descending artery. Posterior descending artery has a proximal 80% concentric stenosis and then backfills a small to medium posterior lateral ventricular branch 9. The left internal mammary artery is widely patent and has a 99% in-stent restenotic lesion which appears to be inside the stent. Distal to the stent the [place] LAD has a 99% stenosis after the revascularization the WRIGHT graft and the [place] LAD were widely patent IMPRESSION: 1. Acute ST elevation myocardial infarction involving the saphenous vein graft to the circumflex artery 2. Successful thrombectomy and reconstruction of the entire vein graft going to the circumflex artery 100% occlusion reduced to 0% with 4 drug-eluting stents in the vein graft 3. Critical disease in the left internal mammary artery and [place] LAD 4. Successful stenting of the left internal mammary artery critical disease reduced to 0% with 1 drug-eluting stent 5. Successful angioplasty of the [place] left internal mammary artery 99% stenosis reduced to 0% with plain old balloon angioplast(POBA) PLAN: 1. Brilinta and aspirin 2. LDL less than 55 3. Risk factor modification 4. Cardiac rehabilitation 5. Avoidance of tobacco products 6. An echocardiogram will be obtained to better evaluate patient's ejection fraction and if her ejection fraction is 35% or less I would recommend lifevest
--- OUTSIDE RECORDS SUMMARY | 2017-06-21 14:10 | External Medical Summary Rpt | CCD ---
Demographics Preferred Language Czech Marital Status Unknown Mosque Affiliation Unknown Race Unknown Ethnic Group Unknown Author Author , JULES VICENTE Address Unknown Phone Immunization No patient found.
--- OUTSIDE RECORDS SUMMARY | 2017-06-21 14:10 | External Medical Summary Rpt | CCD ---
Author Author , JULES VICENTE Address Unknown Phone [email or web address] Purpose Continuity of Care Document - 10-24-2016 [...] R10.30 LOWER 10-24-2016 ABDOMINAL PAIN, UNSPECIFIED Z79.84 SHELTER 10-24-2016 (CURRENT) USE OF ORAL HYPOGLYCEMI C DRUGS Z79.899 OTHER LONG 10-24-2016 TERM (CURRENT) DRUG THERAPY Z87.891 PERSONAL 10-24-2016 HISTORY OF NICOTINE DEPENDENCE I21.3 ST ELEVATION (STEMI) MYOCARDIAL INFARCTION OF [facility] SITE Results Labs Lab Lab Date Result Refere Interp Status Commen Order Detail nces retati t Range on Activated clotting time (06-21-2017 12:06) Activat = 151 74-125 complet ed 017 SEC ed clottin 12:06 g time Activated clotting time (06-21-2017 11:27) Activat = 305 74-125 complet ed 017 SEC ed clottin 11:27 g time Activated clotting time (06-21-2017 10:48) Activat = 257 74-125 complet ed 017 SEC ed clottin 10:48 g time Activated clotting time (06-21-2017 10:19) Activat > 400 74-125 complet ed 017 SEC ed clottin 10:19 g time Blood lactic acid measurement (moles/vol (06-21-2017 09:40) Blood = 1.5 0.4-2.0 complet lactic 017 mmol/L ed acid 09:40 measure ment (moles/ vol UPPER RESPIRATORY PANEL,PCR (06-21-2017 09:40) Parainf NOT NOT complet luenza 017 DETECTE DETECTE ed virus 3 09:40 D NOT RNA DETECTE detecti D L on by p Parainf NOT NOT complet luenza 017 DETECTE DETECTE ed virus 09:40 D NOT type 4 DETECTE RNA D L detecti on Rhinovi NOT NOT complet marylu and 017 DETECTE DETECTE ed 09:40 D NOT Enterov DETECTE irus D L RNA detecti on Respira NOT NOT complet tory 017 DETECTE DETECTE ed syncyti 09:40 D NOT al DETECTE virus D L (RSV) detect Stool NOT NOT complet adenovi 017 DETECTE DETECTE ed marylu DNA 09:40 D NOT DETECTE detecti D L on by PCR Bordete NOT NOT complet lla 017 DETECTE DETECTE ed pertuss 09:40 D NOT is DETECTE detecti D L on by PCR Chlamyd NOT NOT complet ophila 017 DETECTE DETECTE ed pneumon 09:40 D NOT iae DNA DETECTE D L detecti on b Human NOT NOT complet coronav 017 DETECTE DETECTE ed irus 09:40 D NOT HKU1 DETECTE RNA D L detecti on by SARS NOT NOT complet Coronav 017 DETECTE DETECTE ed irus 09:40 D NOT RNA DETECTE detecti D L on by probe Influen NOT NOT complet za A 017 DETECTE DETECTE ed virus 09:40 D NOT subtype DETECTE H3 D L detecti on b Influen NOT NOT complet za 017 DETECTE DETECTE ed virus A 09:40 D NOT H1 RNA DETECTE D L detecti on in is Influen NOT NOT complet za A 017 DETECTE DETECTE ed H1N1 09:40 D NOT 2009 DETECTE RT-PCR D L Influen NOT NOT complet za B 017 DETECTE DETECTE ed virus 09:40 D NOT RNA DETECTE detecti D L on by polym Influen NOT NOT complet za A 017 DETECTE DETECTE ed RNA PCR 09:40 D NOT DETECTE D L Human NOT NOT complet metapne 017 DETECTE DETECTE ed umoviru 09:40 D NOT s DETECTE (hMPV) D L antigen det Mycopla NOT NOT complet sma 017 DETECTE DETECTE ed pneumon 09:40 D NOT iae PCR DETECTE D L Parainf NOT NOT complet luenza 017 DETECTE DETECTE ed 1 virus 09:40 D NOT RNA DETECTE nucleic D L acid a Parainf NOT NOT complet luenza 017 DETECTE DETECTE ed virus 2 09:40 D NOT RNA DETECTE detecti D L on by p CBC w auto diff (06-21-2017 09:30) Automat [...] 017 K/mm3 ed monocyt 09:30 e count Desha % = 4.7 % 1.7-9.3 complet 017 ed 09:30 Cardiac enzymes (06-21-2017 09:30) Serum = 2.1 0.0-3.6 complet or 017 ng/mL ed plasma 09:30 creatin e kinase MB measu Serum = 2.1 0-4.0 complet or 017 U/L ed plasma 09:30 creatin e kinase MB (CK-M Serum = 99 26-192 complet or 017 U/L ed plasma 09:30 creatin e kinase measure m Serum = 0.26 0.00-0. complet or 017 ng/mL 06 ed plasma 09:30 troponi n i.cardi ac measu Comment: 0.04 - 0.49 IS AN INDETERMINANT ZONE Comment: And can be consistent with the following diseases: Comment: Comment: Trauma Critically ill patients Rao >30% TBSA Comment: CHF Hypothyroidism Amyloidosis Comment: Hypertension Myocarditis Sepsis Comment: Hypotension Rhabdomyolysis Vital exhaust. Comment: Postop surgery Pulmonary embolism CVA Comment: Renal failure Acute neurological disease Atrial fib. Comprehensive metabolic panel (06-21-2017 09:30) Serum --2 = 0.5 1.1-1.8 complet or 017 ed plasma 09:30 albumin /globul in mass ra Serum 2 = 2.6 3.4-5.0 complet or 017 gm/dL ed plasma 09:30 albumin measure ment (mas Serum = 93 46-116 complet or 017 U/L ed plasma 09:30 alkalin e phospha tase sonny Serum = 0.4 0.2-1.0 complet or 017 mg/dL ed plasma 09:30 total bilirub in measure m Serum = 15 7-18 complet or 017 mg/dL ed plasma 09:30 urea nitroge n measure men Serum = 8.4 8.5-10. complet or 017 mg/dL 1 ed plasma 09:30 calcium measure ment (mas Serum = 104 98-107 complet or 017 mmoL/L ed plasma 09:30 chlorid e measure ment (mo Carbon = 23 21.0-32 complet dioxide 017 mmoL/L .0 ed 09:30 measure ment Serum = 1.4 0.55-1. complet or 017 mg/dL 02 ed plasma 09:30 creatin ine measure ment ( Estimat = 38 50-200 complet ion of 017 ML/MIN ed creatin 09:30 ine renal clearan ce Estimat = 37 59- complet ed 017 ML/MIN ed glomeru 09:30 lar filtrat ion rate (GF Comment: REFERENCE RANGE: >60 ML/MIN/1.73 SQUARE METERS Comment: If this patient is -Rwandan, then multiply the Comment: result by 1.210. Serum = 4.9 1.3-3.2 complet globuli 017 gm/dL ed n 09:30 measure ment (mass/v olume) Serum = 189 74-106 complet or 017 mg/dL ed plasma 09:30 glucose measure ment (mas Serum = 4.0 3.5-5.1 complet potassi 017 mmoL/L ed um 09:30 measure ment Serum = 139 136-145 complet sodium 017 mmoL/L ed measure 09:30 ment Serum = 20 15-37 complet or 017 U/L ed plasma 09:30 asparta te aminotr ansfera ALT = 14 12-78 complet (SGPT) 017 U/L ed ser/mario 09:30 s Protein = 7.5 6.4-8.2 complet total 017 gm/dL ed ser/mario 09:30 s
--- OUTSIDE RECORDS SUMMARY | 2017-06-21 14:10 | External Medical Summary Rpt | CCD ---
Demographics Preferred Language Bulgarian Marital Status Unknown Quaker Affiliation Unknown Race Unknown Ethnic Group Unknown Author Author , JULES VICENTE Address Unknown Phone Immunization No patient found.
--- OUTSIDE RECORDS SUMMARY | 2017-06-21 14:10 | External Medical Summary Rpt | CCD ---
Author Author , JULES VICENTE Address Unknown Phone [email or web address] Purpose Continuity of Care Document - 10-24-2016 [...] R10.30 LOWER 10-24-2016 ABDOMINAL PAIN, UNSPECIFIED Z79.84 HALFWAY 10-24-2016 (CURRENT) USE OF ORAL HYPOGLYCEMI C DRUGS Z79.899 OTHER LONG 10-24-2016 TERM (CURRENT) DRUG THERAPY Z87.891 PERSONAL 10-24-2016 HISTORY OF NICOTINE DEPENDENCE I21.3 ST ELEVATION (STEMI) MYOCARDIAL INFARCTION OF [facility] SITE Results Labs Lab Lab Date Result [...] 017 K/mm3 ed monocyt 09:30 e count [place] % = 4.7 % 1.7-9.3 complet 017 [...] SQUARE METERS Comment: If this patient is -[place]ian, then multiply the Comment: result by 1.210. [...]
--- OUTSIDE RECORDS SUMMARY | 2017-06-21 14:11 | External Medical Summary Rpt ---
Author Author [employer], [employer] Organization [employer] Address Unknown Phone Unavailable Results Activated clotting time in Blood by Coagulation assay Observa Value Referen Units Interpr Notes Date tion ce etation Range Activated 74 - 125 SEC High No Jun 6 clotting alert informati 2017 time in on in 12:06 PM Blood by source Coagulati data on assay Activated clotting time in Blood by Coagulation assay Observa Value Referen Units Interpr Notes Date tion ce etation Range Activated 74 - 125 SEC High No Jun 21 clotting alert informati 2017 time in on in 11:27 AM Blood by source Coagulati data on assay Activated clotting time in Blood by Coagulation assay Observa Value Referen Units Interpr Notes Date tion ce etation Range Activated 74 - 125 SEC High No Jun 21 clotting alert informati 2017 time in on in 10:48 AM Blood by source Coagulati data on assay UPPER RESPIRATORY PANEL,PCR Observa Value Referen Units Interpr Notes Date tion ce etation Range Adenovi NOT NOT No No No Dec 6 marylu DNA DETECTE DETECTE informa informa informa 2017 D tion in tion in tion in 9:40 AM [Presen source source source ce] in data data data Unspeci fied specime n by Probe & target amplifi cation method Bordete NOT NOT No No No Dec 6 lla DETECTE DETECTE informa informa informa 2017 pertuss D tion in tion in tion in 9:40 AM is DNA source source source [Presen data data data ce] in Unspeci fied specime n by Probe & target amplifi cation method Chlamyd NOT NOT No No No Dec 6 ophila DETECTE DETECTE informa informa informa 2017 pneumon D tion in tion in tion in 9:40 AM iae DNA source source source data data data [Presen ce] in Unspeci fied specime n by Probe & target amplifi cation method SARS NOT NOT No No No Dec 6 coronav DETECTE DETECTE informa informa informa 2017 irus D tion in tion in tion in 9:40 AM RNA source source source [Presen data data data ce] in Unspeci fied specime n by Probe & target amplifi cation method Human NOT NOT No No No Dec 6 coronav DETECTE DETECTE informa informa informa 2016 irus D tion in tion in tion in 9:40 AM HKU1 source source source RNA data data data detecti on by SARS NOT NOT No No No Dec 6 coronav DETECTE DETECTE informa informa informa 2016 irus D tion in tion in tion in 9:40 AM RNA source source source [Presen data data data ce] in Unspeci fied specime n by Probe & target amplifi cation method SARS NOT NOT No No No Dec 6 coronav DETECTE DETECTE informa informa informa 2017 irus D tion in tion in tion in 9:40 AM RNA source source source [Presen data data data ce] in Unspeci fied specime n by Probe & target amplifi cation method Influen NOT NOT No No No Dec 6 za DETECTE DETECTE informa informa informa 2017 virus A D tion in tion in tion in 9:40 AM H3 RNA source source source data data data [Presen ce] in Unspeci fied specime n by Probe & target amplifi cation method Influen NOT NOT No No No Dec 6 za DETECTE DETECTE informa informa informa 2017 virus A D tion in tion in tion in 9:40 AM H1 RNA source source source data data data [Presen ce] in Isolate by Probe & target amplifi cation method Influen NOT NOT No No No Dec 6 za DETECTE DETECTE informa informa informa 2017 virus A D tion in tion in tion in 9:40 AM H1 RNA source source source data data data [Presen ce] in Unspeci fied specime n by Probe & target amplifi cation method Influen NOT NOT No No No Dec 6 za DETECTE DETECTE informa informa informa 2017 virus B D tion in tion in tion in 9:40 AM RNA source source source [Presen data data data ce] in Unspeci fied specime n by Probe & target amplifi cation method Influen NOT NOT No No No Dec 6 za DETECTE DETECTE informa informa informa 2017 virus A D tion in tion in tion in 9:40 AM RNA source source source [Presen data data data ce] in Unspeci fied specime n by Probe & target amplifi cation method Human NOT NOT No No No Dec 6 metapne DETECTE DETECTE informa informa informa 2017 umoviru D tion in tion in tion in 9:40 AM s Ag source source source [Presen data data data ce] in Unspeci fied specime n Mycopla NOT NOT No No No Dec 6 sma DETECTE DETECTE informa informa informa 2017 pneumon D tion in tion in tion in 9:40 AM iae DNA source source source data data data [Presen ce] in Unspeci fied specime n by Probe & target amplifi cation method Parainf NOT NOT No No No Dec 6 luenza DETECTE DETECTE informa informa informa 2017 virus 1 D tion in tion in tion in 9:40 AM RNA source source source [Presen data data data ce] in Unspeci fied specime n by Probe & target amplifi cation method Parainf NOT NOT No No No Dec 6 luenza DETECTE DETECTE informa informa informa 2017 virus 2 D tion in tion in tion in 9:40 AM RNA source source source [Presen data data data ce] in Unspeci fied specime n by Probe & target amplifi cation method Parainf NOT NOT No No No Dec 6 luenza DETECTE DETECTE informa informa informa 2017 virus 3 D tion in tion in tion in 9:40 AM RNA source source source [Presen data data data ce] in Unspeci fied specime n by Probe & target amplifi cation method Parainf NOT NOT No No No Dec 6 luenza DETECTE DETECTE informa informa informa 2017 virus 4 D tion in tion in tion in 9:40 AM RNA source source source [Presen data data data ce] in Isolate by Probe & target amplifi cation method Rhinovi NOT NOT No No No Dec 6 marylu+Ent DETECTE DETECTE informa informa informa 2017 eroviru D tion in tion in tion in 9:40 AM s RNA source source source [Presen data data data ce] in Unspeci fied specime n by Probe & target amplifi cation method Respira NOT NOT No No No Jun 21 tory DETECTE DETECTE informa informa informa 2017 syncyti D tion in tion in tion in 9:40 AM al source source source virus data data data RNA [Presen ce] in Unspeci fied specime n by Probe & target amplifi cation method Lactate [Moles/volume] in Blood Observa Value Referen Units Interpr Notes Date ti ce etation Range Lactate 0.4 - 2.0 mmol/L Normal No Jun 21 [Moles/vo informati 2017 9:40 lume] in on in AM Blood source data Cardiac enzymes Observa Value Referen Units Interpr Notes Date ti ce etation Range Creatine 0 - 4.0 U/L Normal No Jun 21 kinase.MB informati 2017 9:30 /Creatine on in AM source kinase.to data jevon [Ratio] in Serum or Plasma Creatine 0.0 - 3.6 ng/mL Normal No Jun 21 kinase.MB informati 2017 9:30 on in AM [Mass/vol source ume] in data Serum or Plasma Creatine 26 - 192 U/L Normal No Jun 21 kinase informati 2017 9:30 [Enzymati on in AM c source activity/ data volume] in Serum or Plasma Troponin 0.00 - ng/mL High 0.04 - Jun 21 I.cardiac 0.06 0.49 IS 2017 9:30 AN AM [Mass/vol INDETERMI ume] in NANT Serum or ZONEAnd Plasma can be consisten t with the following diseases: Trauma Criticall y ill patients Rao >30% TBSACHF Hypothyro idism Amyloidos isHyperte nsion Myocardit is SepsisHyp otension Rhabdomyo lysis Vital exhaust.P ostop surgery Pulmonary embolism CVARenal failure Acute neurologi stephan disease Atrial fib. Comprehensive metabolic 2000 panel in Serum or Plasma Observa Value Referen Units Interpr Notes Date tion ce etation Range Albumin/G 1.1 - 1.8 No Low No Jun 21 lobulin informati informati 2016 9:30 [Mass on in on in AM ratio] in source source Serum or data data Plasma Albumin 3.4 - 5.0 gm/dL Low No Jun 21 [Mass/vol informati 2017 9:30 ume] in on in AM Serum or source Plasma data Alkaline 46 - 116 U/L Normal No Dec 6 phosphata informati 2016 9:30 se on in AM [Enzymati source c data activity/ volume] in Serum or Plasma Bilirubin 0.2 - 1.0 mg/dL Normal No Jun 21 .total informati 2016 9:30 [Mass/vol on in AM ume] in source Serum or data Plasma Urea 7 - 18 mg/dL Normal No Jun 21 nitrogen informati 2016 9:30 [Mass/vol on in AM ume] in source Serum or data Plasma Calcium 8.5 - mg/dL Low No Jun 21 [Mass/vol 10.1 informati 2017 9:30 ume] in on in AM Serum or source Plasma data Chloride 98 - 107 mmoL/L Normal No Jun 21 [Moles/vo informati 2016 9:30 lume] in on in AM Serum or source Plasma data Carbon 21.0 - mmoL/L Normal No Jun 21 dioxide, 32.0 informati 2017 9:30 total on in AM [Moles/vo source lume] in data Serum or Plasma Creatinin 0.55 - mg/dL High No Jun 21 e 1.02 informati 2017 9:30 [Mass/vol on in AM ume] in source Serum or data Plasma Creatinin 50 - 200 ML/MIN Low No Jun 21 e renal informati 2017 9:30 clearance on in AM source predicted data by Cockcroft -Gault formula Estimated 59- ML/MIN Low REFERENCE Jun 21 RANGE: 2017 9:30 glomerula >60 AM r ML/MIN/1. filtratio 73 SQUARE n rate METERSIf (GF this patient is -A merican, then multiply theresult by 1.210. Globulin 1.3 - 3.2 gm/dL High No Jun 21 [Mass/vol informati 2017 9:30 ume] in on in AM Serum source data Glucose 74 - 106 mg/dL High No Jun 21 [Mass/vol informati 2017 9:30 ume] in on in AM Serum or source Plasma data Potassium 3.5 - 5.1 mmoL/L Normal No Jun 21 informati 2017 9:30 [Moles/vo on in AM lume] in source Serum or data Plasma Sodium 136 - 145 mmoL/L Normal No Jun 21 [Moles/vo informati 2017 9:30 lume] in on in AM Serum or source Plasma data Aspartate 15 - 37 U/L Normal No Jun 212016 9:30 aminotran on in AM sferase source [Enzymati data c activity/ volume] in Serum or Plasma Alanine 12 - 78 U/L Normal Jun 21 aminotran 2016 9:30 sferase on in AM [Enzymati source c data activity/ volume] in Serum or Plasma Protein 6.4 - 8.2 gm/dL Normal Jun 21 [Mass/vol 2016 9:30 ume] in on in AM Serum or source Plasma data CBC W Auto Differential panel in Blood Observa Value Referen Units Interpr Notes Date tion ce etation Range Basophils 0 - 0.2 K/MM3 Normal No Jun 21 informati 2016 9:30 [#/volume on in AM ] in source Blood by data Automated count Basophils 0.1 - 2.0 % Normal No Jun 21 informati 2016 9:30 leukocyte on in AM s in source Blood by data Automated count Eosinophi 0.0 - 0.4 K/mm3 High Jun 21 ls informati 2016 9:30 [#/volume on in AM ] in source Blood by data Automated count Eosinophi 0.1 - % Normal Jun 21 ls/100 12.0 informati 2016 9:30 leukocyte on in AM s in source Blood by data Automated count Granulocy 1.8 - 7.8 K/mm3 High No Jun 21 karla informati 2016 9:30 [#/volume on in AM ] in source Blood by data Automated count Granulocy 37.0 - % High No Jun 21 karla/100 80.0 informati 2016 9:30 leukocyte on in AM s in source Blood by data Automated count Hematocri 37.0 - % Low Jun 21 t [Volume 47.0 ati 2016 9:30 on in AM Fraction] source of Blood data Hemoglobi 12.2 - g/dL Low Jun 21 n 16.2 informati 2016 9:30 [Mass/vol on in AM ume] in source Blood data Lymphocyt 0.7 - 4.5 K/mm3 Normal Jun 21 es 2016 9:30 [#/volume on in AM ] in source Unspecifi data ed specimen by Automated count Lymphocyt 10 - 50.0 % Normal Jun 21 es ati 2016 9:30 [#/volume on in AM ] in source Unspecifi data ed specimen by Automated count Erythrocy 27 - 31.2 pg Normal Jun 21 te mean informati 2016 9:30 corpuscul on in AM ar source hemoglobi data n [Entitic mass] Erythrocy 31.8 - g/dl Normal No Jun 21 te mean 35.4 informati 2017 9:30 corpuscul on in AM ar source hemoglobi data n concentra tion [Mass/vol ume] by Automated count Erythrocy 82.2 - fl Normal No Jun 21 te mean 97.8 informati 2017 9:30 corpuscul on in AM ar volume source [Entitic data volume] by Automated count Monocytes 0.1 - 1.0 K/mm3 Normal No Jun 21 informati 2016 9:30 [#/volume on in AM ] in source Blood by data Automated count Monocytes 1.7 - 9.3 % Normal No Jun 6 /100 informati 2017 9:30 leukocyte on in AM s in source Blood by data Automated count Platelet 7.4 - fl Normal No Jun 21 mean 10.4 informati 2017 9:30 volume on in AM [Entitic source volume] data in Blood by Automated count Platelets 142 - 424 K/mm3 High No Jun 6 informati 2017 9:30 [#/volume on in AM ] in source Blood data Erythrocy 4.2 - 5.4 M/mm3 Low No Jun 6 karla informati 2017 9:30 [#/volume on in AM ] in source Amniotic data fluid Erythrocy 11.5 - % Normal No Jun 6 te 17.5 informati 2017 9:30 distribut on in AM ion width source [Entitic data volume] by Automated count Leukocyte 4.8 - K/MM3 High No Jun 6 s 10.8 informati 2016 9:30 [#/volume on in AM ] in source Blood data
[2017-06-21] MEDS ORDERED: AMLODIPINE10 M2 PO (15:32)
--- NOTE | 2017-06-21 20:38 | HISTORY AND PHYSICAL REPORT ---
Demographics: Admit date: 06/21/17 Chief complaint: Chest pain PRIMARY DIAGNOSIS: * (STEMI) Allergies: Coded Allergies: No Known Allergies (06/21/17) History of present illness: History of present illness: 71 yo WF with known ischemic CM, previous CABG and diabetes was seen in ER for recurrent CP for several days. Symptoms transiently improved with NTG SL but recurred with EKG changes consistent with inferior STEMI with lateral reciprocal changes. Pt seen urgently in ER and taken to [facility] for cardiac cath. Initial troponin 0.26. Above noted per cardiology consultation. Patient has been extremely noncompliant with appointments in my office, and her medicine compliance has been questionable. Past medical history: Family HX Diabetes No CAD Yes Hypertension Yes Hyperlipidemia Yes Cancer No TB No Immunization HX Ped.Immunizations UTD Yes DT/Tetanus 5-10 Years Ago Flu Refused Pneumonia Received In Past TB Test in last year No General CAD? Yes Angina: Yes DE: Yes Hypertension? Yes Hyperlipidemia? Yes CHF? Yes DVT? No PE? No COPD? No Asthma? No Anemia? Yes GERD? No Gastric ulcers? No GI Bleed? No Hernia? No Thyroid Problems? No Hypothyroidism? No CVA? Yes Seizures? No Diabetes? Yes Insulin Dependent: No Insulin Pump: No Home FSBS? Yes Renal Insuffiency? No UTI? Yes Stones? No BPH? No GB Disease: No Nephritic Syndrome? No Asplenia? No Hepatitis? No Sickle Cell Disease? No Arthritis? No Migraines? No Cataracts? Yes Glaucoma? No MRSA? No HIV? No TB? No Anxiety? Yes Depression? Yes Cancer? Yes Site: CERVICAL More? Yes Additional hx: STENTS, BYPASS Past Surgical HX Previous Surgery?Y KIDNEY STENTS HEART STENTS TRIPLE BI PASS RIGHT ANKLE FX & SX CERVICAL CA SX Current home meds: Active Scripts Buspirone Hcl (Buspar 10MG) 10 MG PO TID PRN ANXIETY #270 TAB Ref 1 Prov: 01/13/16 Reported Medications Ranitidine Hcl (Ranitidine 300MG) 300 MG PO QHS #90 TAB CLOPIDOGREL BISULFATE (PLAVIX) 75 MG PO DAILY Furosemide (Lasix 40MG) 40 MG PO BID MAGNESIUM OXIDE (Magnesium Oxide) 400 MG PO BID Acetaminophen (Tylenol XS 500MG) 500 MG PO Q8HP PRN PAIN MULTIVITAMIN (Multi-Vitamins) 1 TAB PO DAILY ONDANSETRON HCL (Zofran 4MG Tab) 4 MG PO Q8HP PRN NAUSEA/VOMITING Calcium Carbonate ([id number]) 500 MG PO BID WHEY PROTEIN ISOLATE (Beneprotein) 1 Scoopful PO BID MISCELLANEOUS (Fingerstick Blood Sugar) 1 STI SC AC Amlodipine Besylate (Amlodipine) 10 MG PO DAILY NITROGLYCERIN (Nitrostat) 0.4 MG SL [id number] PRN CHEST PAIN #25 Aspirin (Adult Low Dose Aspirin EC) 81 MG PO DAILY #1 METFORMIN HCL (Metformin 1000MG) 1,000 MG PO BID #180 Carvedilol (Carvedilol 25MG) 25 MG PO BID #180 Social Hx: Smoking HX Tobacco No Type Cigarettes Packs/day N/A Alcohol Alcohol: No Hx of Drug Use Drug Use? No Patien't marital status is Patient's support system is fair Review of systems: Constitutional see HPI. Respiratory see HPI. Cardiovascular see HPI Gastrointestinal/Abdominal No no symptoms reported Genitourinary No: no symptoms reported. Musculoskeletal No: no symptoms reported. Neurological No: see HPI. Exam: Lab data for last 24 hours: Laboratory Tests 06/21/17 1206: POC Activ Clotting Time 151 *H 06/21/17 1127: POC Activ Clotting Time 305 *H 06/21/17 1048: POC Activ Clotting Time 257 *H 06/21/17 1019: POC Activ Clotting Time >400 *H 06/21/17 0940: Lactic Acid 1.5, Chlamy pneum (TEM-PCR) NOT DETECTED, Adenovirus (PCR) NOT DETECTED, B. pertussis DNA (PCR) NOT DETECTED, Coronavirus OC43 (PCR) NOT DETECTED, Coronavirus HKU1 (PCR) NOT DETECTED, Coronavirus 229E (PCR) NOT DETECTED, Coronavirus NL63 (PCR) NOT DETECTED, Human Metapneumovir PCR NOT DETECTED, Influenza A (H1) PCR NOT DETECTED, Influ A (H1N1/09) PCR NOT DETECTED, Influenza A (H3) PCR NOT DETECTED, Influenza Type A (PCR) NOT DETECTED, Influenza Type B (PCR) NOT DETECTED, M. pneumoniae (PCR) NOT DETECTED, Parainfluenza 1 (PCR) NOT DETECTED, Parainfluenza 2 (PCR) NOT DETECTED, Parainfluenza 3 (PCR) NOT DETECTED, Parainfluenza 4 (PCR) NOT DETECTED, RSV (PCR ) NOT DETECTED, Entero/Rhino (PCR) NOT DETECTED 06/21/17 0930: Sodium 139, Potassium 4.0, Chloride 104, Carbon Dioxide 23, BUN 15, Creatinine 1.4 H, Estimated Creat Clear 38 L, Estimated GFR (MDRD) 37 L, Glucose 189 H, Calcium 8.4 L, Total Bilirubin 0.4, AST 20, ALT 14, Alkaline Phosphatase 93, Creatine Kinase 99, CK-MB (CK-2) Rel Index 2.1, CK and CKMB Interp 2.1, Troponin I 0.26 H, Total Protein 7.5, Albumin 2.6 L, Globulin 4.9 H, Albumin/Globulin Ratio 0.5 L, WBC 13.2 H, RBC 3.83 L, Hgb 11.2 L, Hct 33.2 L, MCV 86.7, RDW 12.0, Plt Count 429 H, MPV 8.3, Gran % 80.3 H, Gran # 10.6 H, Lymphocytes % 10.2, Monocytes % 4.7, Eosinophils % 4.5, Basophils % 0.3, Lymphocytes # 1.3, Monocytes # 0.6, Eosinophils # 0.6 H, Basophils # 0.0, PUBS MCHC 33.7, MCH 29.2 Microbiology 06/21 940 BLOOD: Anaerobic Blood Culture - RECD 06/21 940 BLOOD: Aerobic Blood Culture - RECD 06/21 940 BLOOD: Anaerobic Blood Culture - RECD 06/21 940 BLOOD: Aerobic Blood Culture - RECD Admission vital signs: 1ST Vital Signs Result Date Time Pulse Ox 98 06/21 936 B/P 138/87 06/21 936 Temp 97.8 06/21 936 Pulse 73 06/21 936 Resp 18 06/21 936 O2 Delivery ROOM AIR 06/21 1233 O2 Flow Rate 2 06/21 1405 Additional information: Patient is alert, examined her in the ICU after her heart catheterization procedure. She was pain-free. She has poor oral hygiene appears older than her stated age and appears in poor health. Lungs are clear, heart rate regular, abdomen soft, good distal perfusion. Right groin catheter site looks good with no swelling or evidence ofcomplications. Plan: Problem List 1. Acute ST elevation myocardial infarction (STEMI) Plan: Status post multiple stent placements. Personally discussed case with cardiology. Close followup. Medications ordered. at [id number]
[2017-06-22] VITALS (19 sets, daily range): BP systolic 111–160; BP diastolic 45–99
--- NOTE | 2017-06-22 05:11 | RADIOLOGY REPORT PS360 ---
CHEST(2 VIEWS-NOT PORTABLE) HISTORY: SOA, chest congestion ORDERING PHYSICIAN: Vishnu Zambrano MD PATIENT AGE: 71 years COMPARISON: 02/09/2016 FINDINGS: Prior median sternotomy with CABG. There is cardiomegaly with mild pulmonary venous congestion and small left pleural effusion. Consolidation is present in the right upper lobe posteriorly consistent with pneumonia. 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 IMPRESSION: 1. CHF with small left effusion. 2. Right upper lobe pneumonia
--- NOTE | 2017-06-22 07:33 | ACUTE CARE PROGRESS NOTE (QUA) ---
Progress Notes Subjective Date 06/22/17 Time 07 Note 71 yo WF in bed in NAD but with some conversational dyspnea. Some atypical chest pain in left side with deep breathing. Feels SOA with minimal movement. Objective Findings Last VS-Temp:99.0 B/P:148/65 Pulse:92 Resp:27 SaO2:94 ROOM AIR Last weight lbs:135 oz:0 K.235 Method:Floor Scales Exam General appearance: alert, awake, no acute distress Cardiovascular: regular rate & rhythm Respiratory: diminished breath sounds, rhonchi ABD: soft Extremities: moves all Neuro: alert, oriented Reviewed: medications, vital signs, lab results Assessment/Plan Problem List 1. Acute ST elevation myocardial infarction (STEMI) Assessment/Plan: s/p SONNY and POBA to SVG to Cx and WRIGHT. On DAPT. Qualifiers: Involved coronary artery: unspecified coronary artery Qualified Code: I21.3 - ST elevation (STEMI) myocardial infarction of unspecified site 2. Ischemic cardiomyopathy Assessment/Plan: On coreg. Start low dose lisinopril for BP and Cardiomyopathy. Follow renal status closely. 3. CKD (chronic kidney disease) stage 3, GFR 30-59 ml/min 4. Pneumonia Patient condition Stable Plan: Will review echo. Start lisinopril as above. Keep in hospital for 48 hrs due to STEMI This inpt stay is expected to cross 2 MNs from start of care Yes at 0743
--- NOTE | 2017-06-22 07:43 | PHARMACY CLINIC NOTE ---
Patient Demographics Patient Demographics Admission date: 06/21/17 Date: 06/22/17 Time: 07 Allergies Coded Allergies: No Known Allergies (06/21/17) HEIGHT- FT: 5 IN: 0.00 K.235 VTE General Information Labs: Laboratory Tests 06/21 09 Hematology Hgb (12.2 - 16.2 g/dL) 11.2 L Hct (37.0 - 47.0 %) 33.2 L Plt Count (142 - 424 K/mm3) 429 H Disclaimer The following section includes nursing documentation that has been pulled in for pharmacy review. Patient's VTE score: 5 Patient's VTE Risk: LOW RISK Clinical trial participant? No VTE prophylaxis [facility] 0371 VTE prophylaxis ordered? Yes Type of prophylaxis/treatment: MELISSA at 0743
--- NOTE | 2017-06-22 07:43 | PHARMACY CLINIC NOTE ---
Patient Demographics Patient Demographics Admission date: 06/21/17 Date: 06/22/17 Time: 07 Allergies Coded Allergies: No Known Allergies (06/21/17) HEIGHT- FT: 5 IN: 0.00 K.235 VTE General Information Labs: Laboratory Tests 06/21 09 Hematology Hgb (12.2 - 16.2 g/dL) 11.2 L Hct (37.0 - 47.0 %) 33.2 L Plt Count (142 - 424 K/mm3) 429 H Disclaimer The following section includes nursing documentation that has been pulled in for pharmacy review. Patient's VTE score: 5 Patient's VTE Risk: LOW RISK Clinical trial participant? No VTE prophylaxis [facility] 0371 VTE prophylaxis ordered? Yes Type of prophylaxis/treatment: MELISSA at 0743
--- NOTE | 2017-06-22 08:01 | ACUTE CARE PROGRESS NOTE (QUA) ---
Progress Notes Subjective Date 06/22/17 Time 0800 Patient/family reports: feeling better, no complaints Nursing reports: alert, no complaints Objective Findings Last VS-Temp:99.0 B/P:148/65 Pulse:92 Resp:27 SaO2:94 ROOM AIR Last weight lbs:135 oz:0 K.235 Method:Floor Scales Exam General appearance: alert, active Eyes: anicteric Neck: non-tender Cardiovascular: no JVD, no ectopics Respiratory: rhonchi Assessment/Plan Problem List 1. Acute ST elevation myocardial infarction (STEMI) Qualifiers: Involved coronary artery: unspecified coronary artery Qualified Code: I21.3 - ST elevation (STEMI) myocardial infarction of unspecified site 2. Ischemic cardiomyopathy 3. CKD (chronic kidney disease) stage 3, GFR 30-59 ml/min 4. Pneumonia Patient condition Improving Plan: continue current care, add IV antibiotics to cover lobar infiltrate This inpt stay is expected to cross 2 MNs from start of care Yes at 0801
[2017-06-22] MEDS ORDERED: FLUOXETINE HYDR20 MG PO (10:48)
--- NOTE | 2017-06-22 16:47 | RADIOLOGY REPORT PS360 ---
PROCEDURE: 2-D M-mode and color Doppler study INDICATIONS FOR THE TEST: Chest pain+ COPD Heart Murmur Tobacco SmokingEX Palpitations+ Fatigue Syncope Edema Hypertension+Diabetes Mellitus+ Rheumatic Fever SOB+RAINEY Obesity Hyperlipidemia+ Family History HD Additional History MS, CABG, HX OF CHF, hx of CVA, heart cath today PATIENT INFORMATION HEIGHT: 60 WEIGHT: 142 GENDER: Female B/P: 120/52 2-D/M-MODE INTERPRETATION: 2-D MEASUREMENTS OBSERVED VALUES IN CMS Right Ventricular Dimension (RVDd) 2.1 Interventricular Septum (Thickness)(IVsd) 1.0 Left Ventricular Internal Dimensions(LVIDd) 5.7 Left Ventricular Posterior Wall (Thickness)(LVPWd) 1.0 Aortic Root 2.3 Aortic Cusp Separation 1.6 Left Atrial Dimensions (LAD) 4.8 2D 1. Left atrium is moderately enlarged, left ventricle is normal size, there is reduced left ventricular systolic function, visually estimated ejection fraction approximately 40%, with marked hypo to akinesis involving the inferobasal, mid to distal septum and anteroapical wall. 2. The right atrium and right ventricle are mildly enlarged with normal contractility. 3. The aortic valve is minimally thickened and fibrosed. 4. The mitral valve leaflets have degenerative changes with mild mitral annular calcification. 5. The tricuspid valve is minimally thickened and fibrosed. 6. The pulmonic valve is poorly visualized. 7. No significant pericardial effusion noted. DOPPLER INTERROGATION: Doppler interrogation of the aortic, mitral and tricuspid valvular presence of moderate to severe mitral and moderate tricuspid regurgitation, calculated right ventricular systolic pressure is 60 mmHg consistent with moderate pulmonary hypertension. CONCLUSION: 1. Moderately enlarged left atrium, normal left ventricular size, reduced left ventricular systolic function, visually estimated ejection fraction 40% with the multiple segmental wall motion abnormality described above. 2. Moderate to severe mitral and moderate tricuspid regurgitation, calculated right ventricular systolic pressure is 60 mmHg consistent with moderate pulmonary hypertension. 3. No significant pericardial effusion noted.
[2017-06-23] VITALS (9 sets, daily range): BP systolic 109–155; BP diastolic 45–75
--- NOTE | 2017-06-23 07:21 | ACUTE CARE PROGRESS NOTE (QUA) ---
Progress Notes Subjective Date 06/23/17 Time 0719 Note Overall patient slept well, a little nauseated by the smell of eggs this morning but feels like she can eat her breakfast. Does not wish to go home today because of shortness of air. Lungs have rhonchi and some crackles in the RIGHT middle lung field. LEFT side is fairly clear, heart rate regular with multiple ectopic beats but much better rate controlled. No edema. Patient is alert and pleasant. Objective Findings Last VS-Temp:99.4 B/P:155/71 Pulse:92 Resp:30 SaO2:99 OXYGEN Last weight lbs:135 oz:0 K.235 Method:Floor Scales Assessment/Plan Problem List 1. Acute ST elevation myocardial infarction (STEMI) Qualifiers: Involved coronary artery: unspecified coronary artery Qualified Code: I21.3 - ST elevation (STEMI) myocardial infarction of unspecified site 2. Ischemic cardiomyopathy 3. CKD (chronic kidney disease) stage 3, GFR 30-59 ml/min 4. Pneumonia Patient condition Improving Plan: continue current care, given patient's systolic failure we will officially make the diagnosis of congestive heart failure. Start daily Lasix today. Continue antibiotic therapy for bacterial pneumonia. She can transfer out of step down to telemetry bed. This inpt stay is expected to cross 2 MNs from start of care Yes at 0721
--- NOTE | 2017-06-23 09:51 | ACUTE CARE PROGRESS NOTE (QUA) ---
Progress Notes Subjective Date 06/23/17 Time 0941 Note 71 yo WF in bed in NAD. No complaint of chest pain. Breathing better but not back to baseline. Severity of situation on admission discussed and stressed need for follow up. Objective Findings Last VS-Temp:99.4 B/P:137/58 Pulse:97 Resp:20 SaO2:99 OXYGEN Last weight lbs:135 oz:0 K.235 Method:Floor Scales Exam General appearance: alert, awake, no acute distress Cardiovascular: regular rate & rhythm Respiratory: diminished breath sounds, rhonchi, wheezing Extremities: moves all Neuro: alert, intact, oriented Reviewed: medications, vital signs, lab results Assessment/Plan Problem List 1. Acute ST elevation myocardial infarction (STEMI) Qualifiers: Involved coronary artery: unspecified coronary artery Qualified Code: I21.3 - ST elevation (STEMI) myocardial infarction of unspecified site 2. Ischemic cardiomyopathy 3. CKD (chronic kidney disease) stage 3, GFR 30-59 ml/min 4. Pneumonia 5. Systolic CHF with reduced left ventricular function, NYHA class 3 Patient condition Stable Plan: continue current meds. check renal status on CHRIS inhibitor and lasix and consider increasing the dose and reducing the norvasc. This inpt stay is expected to cross 2 MNs from start of care Yes at 0950
[2017-06-24] VITALS (7 sets, daily range): BP systolic 110–134; BP diastolic 45–511
--- NOTE | 2017-06-24 08:37 | ACUTE CARE PROGRESS NOTE (QUA) ---
Progress Notes Subjective Date 06/24/17 Time 0835 Note Overall patient feels much better, feels stronger. PT evaluation reviewed. Patient has rhonchi in the RIGHT lower lung field but clearer air movement. Heart rate regular with occasional ectopic beats. Abdomen soft, she is alert and oriented 3. Objective Findings Last VS-Temp:97.7 B/P:115/55 Pulse:78 Resp:20 SaO2:96 OXYGEN Last weight lbs:141 oz:6 K.127 Method:Bed Scales Assessment/Plan Problem List 1. Acute ST elevation myocardial infarction (STEMI) Qualifiers: Involved coronary artery: unspecified coronary artery Qualified Code: I21.3 - ST elevation (STEMI) myocardial infarction of unspecified site 2. Ischemic cardiomyopathy 3. CKD (chronic kidney disease) stage 3, GFR 30-59 ml/min 4. Pneumonia 5. Systolic CHF with reduced left ventricular function, NYHA class 3 Patient condition Improving Plan: continue current care, plan for continued IV antibiotics for lobar pneumonia. Post STEMI care continues. Patient has responded well to medication intervention. Plan for long-term care transfer for skilled rehab when appropriate. This inpt stay is expected to cross 2 MNs from start of care Yes at 0836
[2017-06-25] VITALS (8 sets, daily range): BP systolic 106–141; BP diastolic 41–68
--- NOTE | 2017-06-25 07:58 | ACUTE CARE PROGRESS NOTE (QUA) ---
Progress Notes Subjective Date 06/25/17 Time 0756 Note Patient continues to have dyspnea at rest and with exertion. She does admit she feels a little bit stronger today. She is awake and alert. She does not appear short of breath while seated in bed. Heart has a regular rate and rhythm. Lungs have faint scattered rhonchi. No wheezing at this time. Encouraged the patient to ambulate little bit more today since she is feeling stronger. No change in medications Objective Findings Last VS-Temp:97.7 B/P:141/51 Pulse:68 Resp:24 SaO2:97 OXYGEN Last weight lbs:143 oz:4 K.977 Method:Bed Scales Laboratory Tests 06/25/17 0654: POC Glucose 123 H 06/24/17 2058: POC Glucose 277 H 06/24/17 1656: POC Glucose 133 H 06/24/17 1159: POC Glucose 198 H Assessment/Plan Problem List 1. Acute ST elevation myocardial infarction (STEMI) Qualifiers: Involved coronary artery: unspecified coronary artery Qualified Code: I21.3 - ST elevation (STEMI) myocardial infarction of unspecified site 2. Ischemic cardiomyopathy 3. CKD (chronic kidney disease) stage 3, GFR 30-59 ml/min 4. Pneumonia 5. Systolic CHF with reduced left ventricular function, NYHA class 3 Patient condition Stable Plan: continue current care This inpt stay is expected to cross 2 MNs from start of care Yes at 0757
[2017-06-26 00:30] VITALS: BP 127/49
[2017-06-26 04:11] VITALS: BP 113/41
[2017-06-26 08:00] VITALS: BP 123/52
--- NOTE | 2017-06-26 08:28 | DISCHARGE SUMMARY STANDARD ---
Demographics Admit date: 06/21/17 Discharge date: 06/26/17 History of present illness History of present illness 71 yo WF with known ischemic CM, previous CABG and diabetes was seen in ER for recurrent CP for several days. Symptoms transiently improved with NTG SL but recurred with EKG changes consistent with inferior STEMI with lateral reciprocal changes. Pt seen urgently in ER and taken to director of cath lab for cardiac cath. Initial troponin 0.26. Above noted per cardiology consultation. Patient has been extremely noncompliant with appointments in my office, and her medicine compliance has been questionable. Hospital Course Hospital Course: Patient was admitted, she was subjected to emergent LEFT heart cath, and stents were placed. She did fairly well, and improved in the step down unit. She was found to have infiltrate on chest x-ray, and was treated with IV antibiotics. She tolerated this well. Over the next couple of days she improved in a stepwise fashion, was still very weak and physical therapy recommended she be considered for long-term care for physical therapy for the next several weeks. This morning she was doing well, lungs were clear, heart rate regular. Abdomen soft and she's eating well. No oral lesions. Poor dentition. Good skin turgor. She'll be transferred to the [facility] today to continue PT/OT. She will need her medications as noted. She will need complete blood count and complete metabolic panel in 2 weeks. Discharge diagnoses Problem List 1. Acute ST elevation myocardial infarction (STEMI) 2. Ischemic cardiomyopathy 3. CKD (chronic kidney disease) stage 3, GFR 30-59 ml/min 4. Pneumonia 5. Systolic CHF with reduced left ventricular function, NYHA class 3 Medications Medications: Discharge meds are as noted. Follow up Follow up in office in: 2 DAYS with: Vishnu Zambrano MD at 0812
[2017-06-26] MEDS ORDERED: XOPENEX1.25 MG/3 INH (08:30)
[2017-06-26] MEDS ORDERED: HUMALOG100 U/ML SC (08:31)
[2017-06-26] MEDS ORDERED: LISINOPRIL2.5 M1 PO (08:31)
[2017-06-26] MEDS ORDERED: OMNICEF 300 MG300 MG PO (08:32)
[2017-06-26] MEDS ORDERED: ZITHROMAX Z-PA250 M2 PO (08:32)
[2017-06-26] MEDS ORDERED: BRILINTA90 M1 PO (08:33)
[2017-06-26] MEDS ORDERED: LASIX 40MG. TAB40 MG PO (08:34)
--- NOTE | 2017-06-26 09:04 | ACUTE CARE PROGRESS NOTE (QUA) ---
Progress Notes Subjective Date 06/26/17 Time 0800 Note 71 yo WF at bedside eating breakfast in NAD. No complaints of chest pains over the weekend. Continues to feel stronger daily. Going to NH today. Objective Findings Last VS-Temp:97.5 B/P:113/41 Pulse:68 Resp:18 SaO2:99 OXYGEN Last weight lbs:145 oz:2 K.828 Method:Bed Scales Exam General appearance: alert, awake, no acute distress Cardiovascular: regular rate & rhythm Respiratory: clear to auscultation Reviewed: medications, vital signs, lab results Assessment/Plan Problem List 1. Acute ST elevation myocardial infarction (STEMI) Assessment/Plan: Stable on DAPT. Qualifiers: Involved coronary artery: unspecified coronary artery Qualified Code: I21.3 - ST elevation (STEMI) myocardial infarction of unspecified site 2. Ischemic cardiomyopathy Assessment/Plan: LVEF at least 40% by echo. 3. CKD (chronic kidney disease) stage 3, GFR 30-59 ml/min 4. Pneumonia 5. Systolic CHF with reduced left ventricular function, NYHA class 3 Patient condition Stable Plan: As above. Follow up in office in one week. Continue ASA, Brilinta, lasix , lisinopril, coreg and norvasc. This inpt stay is expected to cross 2 MNs from start of care Yes at 0903
[2017-06-26 11:45] VITALS: BP 126/55
== END 2017-06-26 11:55 | DRG 246 ==
LOC: ER 09:33 → ICU 10:26 → 2ND 10:26 → ICU 17:14 → 2ND 06-23 10:36
PROVIDERS: Emergency Medicine; Internal Medicine
PROC: 4A023N7 Measurement of Cardiac Sampling and Pressure, Left Heart, Percutaneous Approach (ICD-10-PCS; principal; 2017-06-21 11:15)
PROC: B2121ZZ Fluoroscopy of Single Coronary Artery Bypass Graft using Low Osmolar Contrast (ICD-10-PCS; principal; 2017-06-21 11:15)
PROC: 027135Z Dilation of Coronary Artery, Two Arteries with Two Drug-eluting Intraluminal Devices, Percutaneous Approach (ICD-10-PCS; principal; 2017-06-21 11:15)
PROC: B2151ZZ Fluoroscopy of Left Heart using Low Osmolar Contrast (ICD-10-PCS; principal; 2017-06-21 11:15)
PROC: B2111ZZ Fluoroscopy of Multiple Coronary Arteries using Low Osmolar Contrast (ICD-10-PCS; principal; 2017-06-21 11:15)
PROC: B2181ZZ Fluoroscopy of Left Internal Mammary Bypass Graft using Low Osmolar Contrast (ICD-10-PCS; principal; 2017-06-21 11:15)
PROC: 02703ZZ Dilation of Coronary Artery, One Artery, Percutaneous Approach (ICD-10-PCS; principal; 2017-06-21 11:15)
DX: I21.19 ST elevation (STEMI) myocardial infarction involving other coronary artery of inferior wall (principal); J18.9 Pneumonia, unspecified organism; I42.8 Other cardiomyopathies; I50.20 Unspecified systolic (congestive) heart failure; I25.729 Atherosclerosis of autologous artery coronary artery bypass graft(s) with unspecified angina pectoris; N18.3 Chronic kidney disease, stage 3 (moderate); E11.9 Type 2 diabetes mellitus without complications; I25.799 Atherosclerosis of other coronary artery bypass graft(s) with unspecified angina pectoris; I25.119 Atherosclerotic heart disease of native coronary artery with unspecified angina pectoris; Z95.1 Presence of aortocoronary bypass graft; Z72.0 Tobacco use; I25.5 Ischemic cardiomyopathy; Z95.5 Presence of coronary angioplasty implant and graft
CPT/HCPCS: C1725; C1769; C1876; C1894; J0456; J1644; J2720; Q9967